=== PATIENT | female | born 1955 | race Caucasian/White ===

== ENCOUNTER 2017-01-06 09:33 | Day surgery (SDC) | payer OTHER ==
[~2017-01-06] VITALS: Ht 170.2 cm; Wt 73.0 kg
[~2017-01-06 09:33] MED LIST: 0.9% Sodium Chloride 1,000 ML IV SCH; INSU100I13 SUBQ; METF-778 PO; SYNTHROID125 MCG PO; Sodium Chloride LOK Flush 10 mL Syringe IV PRN; fentaNYL-PF 50 mCg/mL 2 mL Inj IVPUSH PRN
[2017-01-06 09:56] VITALS: BP 148/100; PULSE 86; RESP 14; O2SAT 99
[2017-01-06] MEDS ORDERED: 0.9% Sodium Chloride 1,000 ML IV ONE (10:32)
[2017-01-06 11:40] VITALS: BP 141/86; PULSE 72; RESP 16; O2SAT 96
[2017-01-06 11:50] VITALS: BP 141/77; PULSE 76; RESP 16; O2SAT 96
[2017-01-06 12:00] VITALS: BP 131/77; PULSE 70; RESP 16; O2SAT 96
--- NOTE | 2017-01-06 13:12 | ENDO ---
[address] [address] ENDOSCOPY PROCEDURE PATIENT: MADISON ANGLIN : 1955 MR#: [id number] ADMIT: 01/06/2017 JOB ID: [id number] DATE: 01/06/2017 PRIMARY PROVIDER: Juan Virgen M.D. PROCEDURE: Colonoscopy. INDICATIONS: A 61-year-old female who reports for colon cancer screening. EQUIPMENT: PCF H 180 AL. SEDATION: 1. 4 mg Versed. 2. 100 mcg fentanyl. COMPLICATIONS: None identified. BOWEL PREPARATION: Fair, adequate examination. PROCEDURAL INFORMATION: After the risks and benefits were explained, written and verbal informed consent was obtained. The patient was brought into the endoscopy suite and placed in the left lateral decubitus position. Sedation was achieved as above. A digital rectal examination was accomplished. No significant pathology appreciated. Mild internal hemorrhoidal cushions. The scope was introduced into the rectum and advanced to the cecum as identified by the appendiceal orifice and ileocecal valve. The scope was slowly withdrawn to carefully examine the mucosa for any defects or lesions. Retroflexed views were accomplished in the rectum. The colon was decompressed. The scope removed from the patient who tolerated the procedure well. FINDINGS: No significant polyps, mass lesions, or inflammatory features identified throughout. Retroflexed views disclosed moderate mild internal hemorrhoids with mild hypertrophied anal papillae. ENDOSCOPIC DIAGNOSIS: 1. Hemorrhoids. 2. Otherwise visually unremarkable colonoscopy to cecum. RECOMMENDATIONS: Repeat colonoscopy 10 years' time, sooner should symptoms warrant an earlier examination.
== END 2017-01-06 23:59 | disposition home or self-care (01) ==
LOC: END 09:33
PROVIDERS: ATTEND Internal Medicine Gastroenterology
DX: Z12.11 Encounter for screening for malignant neoplasm of colon (principal); K64.8 Other hemorrhoids; E03.9 Hypothyroidism, unspecified; E11.9 Type 2 diabetes mellitus without complications; Z79.4 Long term (current) use of insulin; Z79.84 Long term (current) use of oral hypoglycemic drugs
CPT/HCPCS: 99153; G0121; G0500; J2250; J3010; J7030